=== PATIENT | female | born 1990 | race Hispanic/Latino ===

== ENCOUNTER 2020-10-01 00:12 | Emergency (ER) | payer SELFPAY ==
[2020-10-01] MEDS ORDERED: Lidocaine 1% w/Epinephrine 1:100K 20 ML VIAL ONE (02:18)
== END 2020-10-01 02:50 | disposition home or self-care (01) ==
LOC: ERS 00:12
DX: Z48.03 Encounter for change or removal of drains (principal)
CPT/HCPCS: 99282